=== PATIENT | male | born 1960 | race Caucasian/White ===

== ENCOUNTER 2019-11-02 12:56 | Inpatient (IN) | payer OTHER ==
--- NOTE | 2019-11-02 13:09 | BHS.RME ---
Substance Use & Tx History - Substance Use History Alcohol Substance amount: 15-25 beers + 1 pint vodka Frequency of use: Daily Substance route: Oral Date of Last Use: 11/02/19 Nicotine Substance amount: 1/2 pack Frequency of use: Daily Substance route: Smoking Date of Last Use: 11/02/19 Physical/Psych/Mental Status - Behavior General Behavior: Increased activity (restlessness, agitation) Eye Contact: Normal - Cooperativeness Cooperativeness: Cooperative - Thinking Thought Processes: Tight, Logical, Goal Directed - Physical Health Problems Is patient presently having any pain?: No Does patient presently have any injuries (include location): No Does patient currently have a fever: No Is patient : No CIWA Nausea/Vomitin-No Nausea/No Vomiting Muscle Tremors: 4-Moderate,w/Arms Extend Anxiety: 5 Agitation: 4-Moderately Restless Paroxysmal Sweats: 2 Orientation: 3-Disoriented Date>2 days Tacttile Disturbances: 0-None Auditory Disturbances: 0-None Visual Disturbances: 1-Very Mild Sensitivity Headache: 0-None Present CIWA-Ar Total Score: 19
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
[2019-11-02 15:48] VITALS: BMI 29.0
[2019-11-02] MEDS ORDERED: chlordiazePOXIDE HCL 25 MG CAPSULE ONE (15:48)
[2019-11-02] MEDS ORDERED: BISMUTH SUBSALICYLATE 524 MG/30 ML UD PO PRN (15:49)
[2019-11-02] MEDS ORDERED: MAGNESIUM HYDROX 2400MG/30ML ORAL SUSPENSION 30 ML CUP PO PRN (15:49)
[2019-11-02] MEDS ORDERED: ACETAMINOPHEN 325 MG TABLET (FP) PO PRN (15:49)
[2019-11-02] MEDS ORDERED: MENTHOL/PHENOL 1 EACH UD MM PRN (15:49)
[2019-11-02] MEDS ORDERED: NICOTINE POLACRILEX 2 MG GUM BUC PRN (15:49)
[2019-11-02] MEDS ORDERED: METHOCARBAMOL 500 MG TABLET PO PRN (15:49)
[2019-11-02] MEDS ORDERED: MAG HYDROX/AL HYDROX/SIMETH 30 ML UNIT-DOSE CUP PO PRN (15:49)
[2019-11-02] MEDS ORDERED: MAGNESIUM CITRATE 300 ML BOTTLE PO PRN (15:49)
[2019-11-02] MEDS ORDERED: ONDANSETRON *ODT* 4 MG TABLET SL ONE (15:49)
[2019-11-02] MEDS ORDERED: chlordiazePOXIDE HCL 25 MG CAPSULE PO ONE (15:51)
[2019-11-02] MEDS: chlordiazePOXIDE HCL 10 MG CAPSULE PO PRN (18:44)
[2019-11-02] MEDS: IBUPROFEN 400 MG TABLET (FP) PO PRN (18:44)
[2019-11-02] MEDS: PRENATAL VITAMINS W/ FOLIC ACID TABLET (FP) PO SCH (18:51)
[2019-11-02] MEDS: NICOTINE 7 MG/24 HOURS TOPICAL PATCH TD SCH (18:51)
[2019-11-02] MEDS: hydrOXYzine PAMOATE 25 MG CAPSULE (FP) PO SCH ×2 (19:00→22:02)
[2019-11-02] MEDS: MELATONIN 5 MG TABLETS PO SCH (22:02)
[2019-11-02] MEDS: THIAMINE HCL 100 MG TABLET (FP) PO SCH (22:02)
[2019-11-02] MEDS: chlordiazePOXIDE HCL 25 MG CAPSULE PO SCH (22:02)
[2019-11-03] MEDS: hydrOXYzine PAMOATE 25 MG CAPSULE (FP) PO SCH ×2 (06:20→10:38)
[2019-11-03] MEDS: chlordiazePOXIDE HCL 25 MG CAPSULE PO SCH ×3 (06:20→22:18)
[2019-11-03] MEDS: PRENATAL VITAMINS W/ FOLIC ACID TABLET (FP) PO SCH (10:36)
[2019-11-03] MEDS: NICOTINE 7 MG/24 HOURS TOPICAL PATCH TD SCH (10:36)
[2019-11-03] MEDS: chlordiazePOXIDE HCL 10 MG CAPSULE PO PRN (10:37)
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
--- NOTE | 2019-11-03 10:57 | EKG ---
Test Reason : Blood Pressure : / mmHG Vent. Rate : 087 BPM Atrial Rate : 087 BPM P-R Int : 148 ms QRS Dur : 100 ms QT Int : 370 ms P-R-T Axes : 066 053 061 degrees QTc Int : 445 ms SINUS RHYTHM WITH PREMATURE ATRIAL COMPLEXES OTHERWISE NORMAL ECG NO PREVIOUS ECGS AVAILABLE Confirmed by VIVEK TURCIOS MD ([id number]) on 11/03/2019 10:56:43 AM Referred By: DR ALBA Confirmed By:VIVEK TURCIOS MD
--- NOTE | 2019-11-03 11:08 | PN ---
S CIWA - CIWA Score Nausea/Vomitin Muscle Tremors: 2 Anxiety: 2 Agitation: 2 Paroxysmal Sweats: No Perspiration Orientation: 0-Oriented Tacttile Disturbances: 1-Very Mild Itch/Numbness Auditory Disturbances: 0-None Visual Disturbances: 0-None Headache: 2-Mild CIWA-Ar Total Score: 11 BHS Progress Note (SOAP) Subjective: alert,irritable,anxious,interrupted sleep,tremor,aching pain in the body and back Objective: 11/03/19 11:07 Vital Signs Temperature 98.2 F 11/03/19 05:40 Pulse Rate 78 11/03/19 05:40 Respiratory Rate 16 11/03/19 05:40 Blood Pressure 120/68 11/03/19 05:40 O2 Sat by Pulse Oximetry (%) 95 11/03/19 05:40 11/03/19 11:08 labs pending Assessment: 11/03/19 11:08 withdrawal symptom Plan: continue detox librium regimen
[2019-11-03 12:38] LABS: HEMATOCRIT 40.9 % (35.4-49); HEMOGLOBIN 14.1 GM/dL (11.7-16.9); MCH 33.1 pg (25.7-33.7); MCHC 34.4 g/dl (32.0-35.9); MEAN CELL VOLUME 96.1 fl (80-96); MEAN PLT VOLUME 8.7 fl (7.5-11.1); PLATELET COUNT 106 K/MM3 (134-434); RBC 4.26 M/mm3 (4.00-5.60); RDW 15.1 % (11.9-15.9); WHITE BLOOD COUNT 4.3 K/mm3 (4.0-10.0)
[2019-11-03 12:48] LABS: ALBUMIN 3.6 g/dl (3.4-5.0); BILIRUBIN,TOTAL 1.2 mg/dL (0.2-1); BLOOD UREA NITROGEN 5.3 mg/dL (7-18); CALCIUM 8.8 mg/dL (8.5-10.1); CREATININE 0.7 mg/dL (0.55-1.3); POTASSIUM 3.3 mmol/L (3.5-5.1); TOT PROT 6.8 g/dl (6.4-8.2)
[2019-11-03] MEDS ORDERED: SUVOREXANT 10 MG TABLET PO PRN (22:00)
[2019-11-03] MEDS: THIAMINE HCL 100 MG TABLET (FP) PO SCH (22:17)
[2019-11-03] MEDS: ACETAMINOPHEN 325 MG TABLET (FP) PO PRN (22:18)
[2019-11-03] MEDS: hydrOXYzine PAMOATE 50 MG CAPSULE (FP) PO PRN (22:18)
[2019-11-03] MEDS: MELATONIN 5 MG TABLETS PO SCH (23:02)
[2019-11-04] MEDS: chlordiazePOXIDE 5 MG CAPSULE PO SCH ×3 (05:45→21:58)
[2019-11-04] MEDS: NICOTINE 7 MG/24 HOURS TOPICAL PATCH TD SCH (10:13)
[2019-11-04] MEDS: PRENATAL VITAMINS W/ FOLIC ACID TABLET (FP) PO SCH (10:13)
[2019-11-04] MEDS: chlordiazePOXIDE HCL 10 MG CAPSULE PO PRN (10:14)
[2019-11-04] MEDS: IBUPROFEN 400 MG TABLET (FP) PO PRN (10:15)
--- NOTE | 2019-11-04 10:59 | PN ---
[facility] CIWA - CIWA Score Nausea/Vomitin-No Nausea/No Vomiting Muscle Tremors: 2 Anxiety: 3 Agitation: 2 Paroxysmal Sweats: No Perspiration Orientation: 0-Oriented Tacttile Disturbances: 0-None Auditory Disturbances: 2-Mild Harshness/Frighten Visual Disturbances: 0-None Headache: 0-None Present CIWA-Ar Total Score: 9 S Progress Note (SOAP) Subjective: Complaints of insomnia, tremors, anxiety, agitation and auditory disturbances. Objective: 11/04/19 10:58 Vital Signs 11/04/19 11/04/19 05:31 08:40 Temperature 97.8 F 97.7 F Pulse Rate 84 87 Respiratory 16 19 Rate Blood Pressure 110/73 119/76 O2 Sat by Pulse 96 96 Oximetry (%) Laboratory Last Values WBC 4.3 K/mm3 (4.0-10.0) 11/03/19 08:40 RBC 4.26 M/mm3 (4.00-5.60) 11/03/19 08:40 Hgb 14.1 GM/dL (11.7-16.9) 11/03/19 08:40 Hct 40.9 % (35.4-49) 11/03/19 08:40 MCV 96.1 fl (80-96) H 11/03/19 08:40 MCH 33.1 pg (25.7-33.7) 11/03/19 08:40 MCHC 34.4 g/dl (32.0-35.9) 11/03/19 08:40 RDW 15.1 % (11.9-15.9) 11/03/19 08:40 Plt Count 106 K/MM3 (134-434) L 11/03/19 08:40 MPV 8.7 fl (7.5-11.1) 11/03/19 08:40 Sodium 140 mmol/L (136-145) 11/03/19 08:40 Potassium 3.3 mmol/L (3.5-5.1) L 11/03/19 08:40 Chloride 102 mmol/L (98-107) 11/03/19 08:40 Carbon Dioxide 29 mmol/L (21-32) 11/03/19 08:40 Anion Gap 10 MMOL/L (8-16) 11/03/19 08:40 BUN 5.3 mg/dL (7-18) L 11/03/19 08:40 Creatinine 0.7 mg/dL (0.55-1.3) 11/03/19 08:40 Est GFR (CKD-EPI)AfAm 120.56 11/03/19 08:40 Est GFR (CKD-EPI)NonAf 104.02 11/03/19 08:40 Random Glucose 119 mg/dL (74-106) H 11/03/19 08:40 Calcium 8.8 mg/dL (8.5-10.1) 11/03/19 08:40 Total Bilirubin 1.2 mg/dL (0.2-1) H 11/03/19 08:40 AST 52 U/L (15-37) H 11/03/19 08:40 ALT 81 U/L (13-61) H 11/03/19 08:40 Alkaline Phosphatase 66 U/L (45-117) 11/03/19 08:40 Total Protein 6.8 g/dl (6.4-8.2) 11/03/19 08:40 Albumin 3.6 g/dl (3.4-5.0) 11/03/19 08:40 Syphilis Serology Non-reactive (NONREACTIVE) 11/03/19 08:40 COVID-19 (MARIELY) Not detected (Not Detected) 11/02/19 17:00 Labs noted. Assessment: 11/04/19 10:58 Alert and oriented x 3, in no acute respiratory distress. Full ROM, ambulating in unit without assistance. Skin warm to touch without any lesions. Withdrawal symptoms. Plan: Continue detox protocol.
[2019-11-04] MEDS: MELATONIN 5 MG TABLETS PO SCH (21:58)
[2019-11-04] MEDS: THIAMINE HCL 100 MG TABLET (FP) PO SCH (21:58)
[2019-11-04] MEDS: hydrOXYzine PAMOATE 50 MG CAPSULE (FP) PO PRN (22:00)
[2019-11-04] MEDS: ACETAMINOPHEN 325 MG TABLET (FP) PO PRN (22:01)
[2019-11-05] MEDS ORDERED: chlordiazePOXIDE HCL 10 MG CAPSULE PO PRN
[2019-11-05] MEDS: chlordiazePOXIDE HCL 10 MG CAPSULE PO SCH ×3 (05:19→22:14)
--- NOTE | 2019-11-05 10:21 | PN ---
[facility] CIWA - CIWA Score Nausea/Vomitin-No Nausea/No Vomiting Muscle Tremors: 2 Anxiety: 2 Agitation: 1-Slight > Activity Paroxysmal Sweats: 2 Orientation: 0-Oriented Tacttile Disturbances: 0-None Auditory Disturbances: 0-None Visual Disturbances: 0-None Headache: 0-None Present CIWA-Ar Total Score: 7 BHS Progress Note (SOAP) Subjective: Complaints of tremors, interrupted sleep,anxiety and sweats. Objective: 11/05/19 10:20 Vital Signs 11/05/19 11/05/19 05:15 08:48 Temperature 96.8 F L 97.3 F L Pulse Rate 69 98 H Respiratory 16 18 Rate Blood Pressure 127/82 157/99 O2 Sat by Pulse 99 99 Oximetry (%) Laboratory Last Values WBC 4.3 K/mm3 (4.0-10.0) 11/03/19 08:40 RBC 4.26 M/mm3 (4.00-5.60) 11/03/19 08:40 Hgb 14.1 GM/dL (11.7-16.9) 11/03/19 08:40 Hct 40.9 % (35.4-49) 11/03/19 08:40 MCV 96.1 fl (80-96) H 11/03/19 08:40 MCH 33.1 pg (25.7-33.7) 11/03/19 08:40 MCHC 34.4 g/dl (32.0-35.9) 11/03/19 08:40 RDW 15.1 % (11.9-15.9) 11/03/19 08:40 Plt Count 106 K/MM3 (134-434) L 11/03/19 08:40 MPV 8.7 fl (7.5-11.1) 11/03/19 08:40 Sodium 140 mmol/L (136-145) 11/03/19 08:40 Potassium 3.3 mmol/L (3.5-5.1) L 11/03/19 08:40 Chloride 102 mmol/L (98-107) 11/03/19 08:40 Carbon Dioxide 29 mmol/L (21-32) 11/03/19 08:40 Anion Gap 10 MMOL/L (8-16) 11/03/19 08:40 BUN 5.3 mg/dL (7-18) L 11/03/19 08:40 Creatinine 0.7 mg/dL (0.55-1.3) 11/03/19 08:40 Est GFR (CKD-EPI)AfAm 120.56 11/03/19 08:40 Est GFR (CKD-EPI)NonAf 104.02 11/03/19 08:40 Random Glucose 119 mg/dL (74-106) H 11/03/19 08:40 Calcium 8.8 mg/dL (8.5-10.1) 11/03/19 08:40 Total Bilirubin 1.2 mg/dL (0.2-1) H 11/03/19 08:40 AST 52 U/L (15-37) H 11/03/19 08:40 ALT 81 U/L (13-61) H 11/03/19 08:40 Alkaline Phosphatase 66 U/L (45-117) 11/03/19 08:40 Total Protein 6.8 g/dl (6.4-8.2) 11/03/19 08:40 Albumin 3.6 g/dl (3.4-5.0) 11/03/19 08:40 Syphilis Serology Non-reactive (NONREACTIVE) 11/03/19 08:40 COVID-19 (MARIELY) Not detected (Not Detected) 11/02/19 17:00 Labs noted. Assessment: 11/05/19 10:21 Alert and oriented x 3, in no acute respiratory distress. Full ROM, ambulatory in unit without any assistance. Skin warm to touch without any lesions. Withdrawal symptoms. Plan: Continue detox protocol.
[2019-11-05] MEDS: NICOTINE 7 MG/24 HOURS TOPICAL PATCH TD SCH (10:23)
[2019-11-05] MEDS: IBUPROFEN 400 MG TABLET (FP) PO PRN ×2 (10:23→22:14)
[2019-11-05] MEDS: PRENATAL VITAMINS W/ FOLIC ACID TABLET (FP) PO SCH (10:23)
[2019-11-05] MEDS: hydrOXYzine PAMOATE 50 MG CAPSULE (FP) PO PRN ×2 (10:23→22:15)
[2019-11-05] MEDS: MELATONIN 5 MG TABLETS PO SCH (22:11)
[2019-11-05] MEDS: THIAMINE HCL 100 MG TABLET (FP) PO SCH (22:11)
[2019-11-06] MEDS ORDERED: chlordiazePOXIDE HCL 10 MG CAPSULE PO ONE (05:00)
[2019-11-06] MEDS: IBUPROFEN 400 MG TABLET (FP) PO PRN (06:04)
--- NOTE | 2019-11-06 09:29 | PN ---
[facility] CIWA - CIWA Score Nausea/Vomitin-No Nausea/No Vomiting Muscle Tremors: None Anxiety: 1-Mildly Anxious Agitation: 0-Normal Activity Paroxysmal Sweats: No Perspiration Orientation: 0-Oriented Tacttile Disturbances: 0-None Auditory Disturbances: 0-None Visual Disturbances: 0-None Headache: 0-None Present CIWA-Ar Total Score: 1 S Progress Note (SOAP) Subjective: alert,no complaint Objective: 11/06/19 09:28 Vital Signs Temperature 97.2 F L 11/06/19 05:05 Pulse Rate 82 11/06/19 05:05 Respiratory Rate 20 11/06/19 05:05 Blood Pressure 135/86 11/06/19 05:05 O2 Sat by Pulse Oximetry (%) 96 11/06/19 05:05 Assessment: 11/06/19 09:28 detox completed,no withdrawal symptom Plan: stable for discharge today,follow up with after care program as arrangement
--- NOTE | 2019-11-06 09:30 | DS ---
[facility] Detox Discharge Summary Admission Date: 11/02/19 Discharge Date: 11/06/19 - History Present History: Alcohol Dependence Additional Comments: alert,oriented x 3 ambulation on the unit lung clear on auscultation bilaterally abdomen soft,no distension,no pain no swelling of leg detox completed,no withdrawal symptom stable for discharge today follow up with after care [facility] as arrangement life style diet modification advise l,no sugar,follow up with medical provider for follow up on blood glucose total time of discharge spending 35 minutes Pertinent Past History: nicotine dependence insomnia - Physical Exam Results Vital Signs: Vital Signs Temperature 97.2 F L 11/06/19 05:05 Pulse Rate 82 11/06/19 05:05 Respiratory Rate 20 11/06/19 05:05 Blood Pressure 135/86 11/06/19 05:05 O2 Sat by Pulse Oximetry (%) 96 11/06/19 05:05 Pertinent Admission Physical Exam Findings: withdrawal signs and symptom Laboratory Last Values WBC 4.3 K/mm3 (4.0-10.0) 11/03/19 08:40 RBC 4.26 M/mm3 (4.00-5.60) 11/03/19 08:40 Hgb 14.1 GM/dL (11.7-16.9) 11/03/19 08:40 Hct 40.9 % (35.4-49) 11/03/19 08:40 MCV 96.1 fl (80-96) H 11/03/19 08:40 MCH 33.1 pg (25.7-33.7) 11/03/19 08:40 MCHC 34.4 g/dl (32.0-35.9) 11/03/19 08:40 RDW 15.1 % (11.9-15.9) 11/03/19 08:40 Plt Count 106 K/MM3 (134-434) L 11/03/19 08:40 MPV 8.7 fl (7.5-11.1) 11/03/19 08:40 Sodium 140 mmol/L (136-145) 11/03/19 08:40 Potassium 3.3 mmol/L (3.5-5.1) L 11/03/19 08:40 Chloride 102 mmol/L (98-107) 11/03/19 08:40 Carbon Dioxide 29 mmol/L (21-32) 11/03/19 08:40 Anion Gap 10 MMOL/L (8-16) 11/03/19 08:40 BUN 5.3 mg/dL (7-18) L 11/03/19 08:40 Creatinine 0.7 mg/dL (0.55-1.3) 11/03/19 08:40 Est GFR (CKD-EPI)AfAm 120.56 11/03/19 08:40 Est GFR (CKD-EPI)NonAf 104.02 11/03/19 08:40 Random Glucose 119 mg/dL (74-106) H 11/03/19 08:40 Calcium 8.8 mg/dL (8.5-10.1) 11/03/19 08:40 Total Bilirubin 1.2 mg/dL (0.2-1) H 11/03/19 08:40 AST 52 U/L (15-37) H 11/03/19 08:40 ALT 81 U/L (13-61) H 11/03/19 08:40 Alkaline Phosphatase 66 U/L (45-117) 11/03/19 08:40 Total Protein 6.8 g/dl (6.4-8.2) 11/03/19 08:40 Albumin 3.6 g/dl (3.4-5.0) 11/03/19 08:40 Syphilis Serology Non-reactive (NONREACTIVE) 11/03/19 08:40 COVID-19 (MARIELY) Not detected (Not Detected) 11/02/19 17:00 Vital Signs Temperature 97.2 F L 11/06/19 05:05 Pulse Rate 82 11/06/19 05:05 Respiratory Rate 20 11/06/19 05:05 Blood Pressure 135/86 11/06/19 05:05 O2 Sat by Pulse Oximetry (%) 96 11/06/19 05:05 - Treatment Hospital Course: Detox Protocol Followed, Detoxed Safely, Responded well, Discharged Condition Good, Rehab Referral Accepted Patient has Accepted a Rehab Referral to: [facility] - Medication Discharge Medications: Ambulatory Orders NK [No Known Home Medication] 11/02/19 - AMA Did Patient Leave Against Medical Advice: No
[2019-11-06] MEDS: hydrOXYzine PAMOATE 50 MG CAPSULE (FP) PO PRN (09:47)
[2019-11-06] MEDS: PRENATAL VITAMINS W/ FOLIC ACID TABLET (FP) PO SCH (09:49)
[2019-11-06] MEDS: NICOTINE 7 MG/24 HOURS TOPICAL PATCH TD SCH (09:49)
[2019-11-06 11:45] VITALS: BP 149/102; PULSE 104; TEMP 98
== END 2019-11-06 11:20 | disposition home or self-care (01) | DRG 775 ==
LOC: YASAS 12:56 → Y6N 17:15
PROVIDERS: ADMIT Allergy & Immunology; ATTEND Allergy & Immunology
PROC: HZ2ZZZZ Detoxification Services for Substance Abuse Treatment (ICD-10-PCS; principal; 2019-11-02)
DX: F10.230 Alcohol dependence with withdrawal, uncomplicated (principal); F17.210 Nicotine dependence, cigarettes, uncomplicated; F10.280 Alcohol dependence with alcohol-induced anxiety disorder; F10.24 Alcohol dependence with alcohol-induced mood disorder; F10.282 Alcohol dependence with alcohol-induced sleep disorder; K70.9 Alcoholic liver disease, unspecified; K76.0 Fatty (change of) liver, not elsewhere classified; Z62.810 Personal history of physical and sexual abuse in childhood; Z59.0 Homelessness
CPT/HCPCS: 36415; 80053; 85027; 86780; 93005; 93010; U0003